=== PATIENT | female | born 1985 | race Caucasian/White ===

== ENCOUNTER 2018-02-15 23:53 | Emergency (ER) | payer OTHER ==
[2018-02-16] MEDS ORDERED: NS 1,000 ML IV ONE ×2 (00:17→02:44)
[2018-02-16] MEDS ORDERED: KETOROLAC 30 MG/1 ML SDV IVP ONE (00:17)
[2018-02-16] MEDS ORDERED: DEXAMETHASONE 10 MG/ML VIAL IVP ONE (00:17)
--- NOTE | 2018-02-16 00:20 | CPEKG ---
Heart Rate: 115 RR Interval: 522 P-R Interval: 144 QRSD Interval: 88 QT Interval: 360 QTC Interval: 498 P False Pass: 59 QRS False Pass: 50 T Wave False Pass: 41 EKG Severity - ABNORMAL ECG - EKG Impression: SINUS TACHYCARDIA EKG Impression: PROLONGED QT INTERVAL Electronically Signed By: Viet Emery 16-Feb-2018 07:39:38
--- NOTE | 2018-02-16 00:24 | EDPHY ---
H & P Stated Complaint: Difficulty speaking x3-4 days, dizziness, balance issues, MUSTAFA Time Seen by Provider: 02/16/18 00:15 HPI/ROS: HPI The patient presents with headache, dizziness, changes of vision of her right eye for the last 4 days. She does have a history of migraine and is here with a friend who is intoxicated and can provide some history, however the patient is not able. She has been talking to her friend via text message over the last 4 days and has been complaining of headache, vision change, difficulty walking. Friend went to her house today. They drink alcohol. She noticed that she could not walk well and brought her in to the hospital. 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 REVIEW OF SYSTEMS Constitutional: No fever, no chills. Eyes: No discharge. ENT: No sore throat. Cardiovascular: No chest pain, no palpitations. Respiratory: No cough, no shortness of breath. Gastrointestinal: No abdominal pain, positive for vomiting. Genitourinary: No hematuria. Musculoskeletal: No back pain. Skin: No rashes. Neurological: Positive for headache. 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 PHYSICAL General Appearance: Alert, uncomfortable appearing Eyes: Pupils equal and round no pallor or injection, extraocular movements are full, blinks to threat ENT, Mouth: Mucous membranes moist Respiratory: There are no retractions, lungs are clear to auscultation Cardiovascular: Tachycardic rate and regular rhythm Gastrointestinal: Abdomen is soft and non-tender, no masses, bowel sounds normal Neurological: Alert, oriented to person and place, does not know the date, poorly cooperative with neurologic exam though cranial nerves 2-12 are in tact with reported diminished vision through her right eye including to shadows, no pronator drift, 5/5 strength in her lower extremities, normal finger to nose testing Skin: Warm and dry, no rashes Musculoskeletal: Neck is supple non tender Extremities: symmetrical, full range of motion Psychiatric: Patient is oriented X 2, there is mild agitation Source: Patient, RN/MD - Personal History LMP (Females 10-55): Irregular Current Tetanus Diphtheria and Acellular Pertussis (TDAP): Yes - Medical/Surgical History Hx Asthma: No Hx Chronic Respiratory Disease: No Hx Diabetes: No Hx Cardiac Disease: No Hx Renal Disease: No Hx Cirrhosis: No Hx Alcoholism: No Hx HIV/AIDS: No Hx Splenectomy or Spleen Trauma: No Other PMH: migraines - Social History Smoking Status: Never smoked Constitutional: Initial Vital Signs Temperature (C) 36.7 C 02/15/18 23:59 Heart Rate 120 H 02/15/18 23:59 Respiratory Rate 20 02/15/18 23:59 Blood Pressure 137/114 H 02/15/18 23:59 O2 Sat (%) 97 02/15/18 23:59 O2 Delivery Mode Room Air O2 (L/minute) 2 Allergies/Adverse Reactions: No Known Allergies Allergy (Unverified 02/15/18 23:59) Medical Decision Making - Diagnostics Imaging Results: CT head shows no acute findings, discussed with radiologist client operations manager. Imaging: Discussed imaging studies w/ call center dispatcher Radiologist, I viewed and interpreted images myself Differential Diagnosis: 32-year-old female with past medical history of migraine presents brought in by concerned friend for headache, vision change, vomiting, ataxia for the last 4 days. On exam, she is tachycardic, intoxicated, describes diminished vision from her right eye. Otherwise neurologic exam is normal, though I was not able to walk her. Differential diagnosis includes CVA, hemorrhage, alcohol intoxication, ocular migraine. Plan for CT scan of head, basic labs, treatment for migraine to see how she responds. In the emergency department, the patient was monitored. She was started on treatment for her headache with improvement in her symptoms. CT scan of her head was unremarkable. Labs did reveal a blood alcohol level of nearly 600. Because of this the patient received ongoing hydration in the emergency department. After 5 hr in the emergency department the patient was more awake and alert. She did admit to several alcoholic drinks last night. Her headache is improved in nearly gone. She is not vomiting, she has completely normal vision of both of her eyes now. She suspects she had a migraine. I wonder if this was an ocular migraine causing diminished vision. I am not worried for TIA in her case given that her neurologic exam was normal. I am certainly concerned about her alcohol use and I have confronted her about this. She says that she only had about 2-3 drinks of alcohol yesterday and has not been drinking anything over the last 4 days and she has had the headache. She denies being a daily drinker or having alcohol withdrawal, however I find this difficult to believe. She will have a sober friend come pick her up from the emergency department. - Data Points Laboratory Results: Laboratory Results 02/16/18 00:10 02/16/18 00:10 02/16/18 02/16/18 02/16/18 05:34 00:10 00:10 WBC 6.89 10^3/uL 10^3/uL (3.80-9.50) RBC 4.45 10^6/uL 10^6/uL (4.18-5.33) Hgb 15.9 g/dL g/dL (12.6-16.3) Hct 43.4 % % (38.0-47.0) MCV 97.5 fL fL (81.5-99.8) MCH 35.7 pg H pg (27.9-34.1) MCHC 36.6 g/dL g/dL (32.4-36.7) RDW 11.8 % % (11.5-15.2) Plt Count 169 10^3/uL 10^3/uL (150-400) MPV 9.8 fL fL (8.7-11.7) Neut % (Auto) 43.8 % % (39.3-74.2) Lymph % (Auto) 45.1 % H % (15.0-45.0) [place] % (Auto) 9.7 % % (4.5-13.0) Eos % (Auto) 0.4 % L % (0.6-7.6) Baso % (Auto) 0.7 % % (0.3-1.7) Nucleat RBC Rel Count 0.0 % % (0.0-0.2) Absolute Neuts (auto) 3.01 10^3/uL 10^3/uL (1.70-6.50) Absolute Lymphs (auto) 3.11 10^3/uL H 10^3/uL (1.00-3.00) Absolute Monos (auto) 0.67 10^3/uL 10^3/uL (0.30-0.80) Absolute Eos (auto) 0.03 10^3/uL 10^3/uL (0.03-0.40) Absolute Basos (auto) 0.05 10^3/uL 10^3/uL (0.02-0.10) Absolute Nucleated RBC 0.00 10^3/uL 10^3/uL (0-0.01) Immature Gran % 0.3 % % (0.0-1.1) Immature Gran # 0.02 10^3/uL 10^3/uL (0.00-0.10) Sodium 139 mEq/L mEq/L (135-145) Potassium 4.1 mEq/L mEq/L (3.3-5.0) Chloride 99 mEq/L mEq/L (97-110) Carbon Dioxide 21 mEq/l L mEq/l (22-31) Anion Gap 19 mEq/L H mEq/L (8-16) BUN 14 mg/dL mg/dL (7-23) Creatinine 0.7 mg/dL mg/dL (0.6-1.0) Estimated GFR > 60 Glucose 92 mg/dL mg/dL (70-100) Calcium 9.1 mg/dL mg/dL (8.5-10.4) Urine Opiates Screen NEGATIVE (NEGATIVE) Urine Barbiturates NEGATIVE (NEGATIVE) Ur Phencyclidine Scrn NEGATIVE (NEGATIVE) Ur Amphetamine Screen NEGATIVE (NEGATIVE) U Benzodiazepines Scrn NEGATIVE (NEGATIVE) Urine Cocaine Screen NEGATIVE (NEGATIVE) U Marijuana (THC) Screen NEGATIVE (NEGATIVE) Ethyl Alcohol 589 mg/dL H* mg/dL (0-10) Medications Given: Discontinued Medications Dexamethasone (Decadron Injection) 10 mg IVP EDNOW ONE Stop: 02/16/18 00:18 Last Admin: 02/16/18 00:48 Dose: 10 mg Sodium Chloride (Ns) 1,000 mls @ 0 mls/hr IV ONCE ONE; Wide Open PRN Reason: Protocol Stop: 02/16/18 00:18 Last Admin: 02/16/18 00:45 Dose: 1,000 mls Sodium Chloride (Ns) 1,000 mls @ 0 mls/hr IV ONCE ONE PRN Reason: Wide Open Stop: 02/16/18 02:45 Last Admin: 02/16/18 02:46 Dose: 1,000 mls Ketorolac Tromethamine (Toradol) 15 mg IVP EDNOW ONE Stop: 02/16/18 00:18 Last Admin: 02/16/18 00:46 Dose: 15 mg Departure - Departure Disposition: Home, Routine, Self-Care Clinical Impression: Alcohol intoxication Qualifiers: Complication of substance-induced condition: with delirium Qualified Code(s): F10.921 - Alcohol use, unspecified with intoxication delirium Headache Qualifiers: Headache type: unspecified Headache chronicity pattern: acute headache Intractability: not intractable Qualified Code(s): R51 - Headache Condition: Good Instructions: Alcohol Intoxication (ED), Acute Headache (ED) Additional Instructions: Please follow-up with your doctors at [place] [facility] in the next 1-2 days. You should return to the emergency department if your worse in any way. He need to be careful about your alcohol use, your alcohol level was dangerously elevated today.
[2018-02-16 00:36] LABS: PLATELET COUNT 169 10^3/uL (150-400)
[2018-02-16 06:45] VITALS: BP 127/87
== END 2018-02-16 07:12 | disposition home or self-care (01) ==
DX: R51 Headache (principal); F10.921 Alcohol use, unspecified with intoxication delirium; E86.9 Volume depletion, unspecified
CPT/HCPCS: 80305; 96374; G0480; J1100; J1885